=== PATIENT | female | born 1940 | race Caucasian/White ===

== ENCOUNTER → 2018-06-16 12:46 | Outpatient (CLI) | payer SELFPAY | PROVIDERS: Visit Provider Physician Assistant | DX: L03.90 Cellulitis, unspecified (principal) | CPT/HCPCS: 87070; 87075; 87077; 87147; 87186; 87205 ==

== ENCOUNTER 2018-06-21 12:51 | Emergency (ER) | payer SELFPAY ==
[2018-06-21 13:17] VITALS: BP 151/78; PULSE 72; RESP 16; TEMP 37.1; O2SAT 100
--- NOTE | 2018-06-21 13:26 | PC.NURSE ---
avulsion from plastic chair to E 05/31/18, placed on ABX and ointment. cultured and resulted as staph. Concerned it wasnt healing well. Appears red, has yellow skin slough to indicate healing. Pt reports only minor pain. Advised to not touch the healing area and to not scrape off the yellow slough--educated that its healing from the inside up and needs to stay there for protection. Pt American and there is minor language barrier but pt reports she understands.
--- NOTE | 2018-06-21 13:32 | ED_ITS ---
HPI - Extremity Problem <CRISTOBAL Bartlett - Last Filed: 06/21/18 22:07> General Chief complaint: Extremity Injury, Lower Stated complaint: STAPH INFECTION/LEFT LEG Time Seen by Provider: 06/21/18 13:08 Source: patient Mode of arrival: ambulatory Limitations: no limitations History of Present Illness HPI Narrative: 78-year-old female here for complaint of a wound to her left anterior lower extremity that she has had for the past couple of weeks. She reports that the wound started out as a cut that she received off of a chair and then got infected. She was seen by the walk-in clinic twice for this and was put on Keflex and also mupirocin ointment. She reports she is on day 5 of the oral antibiotics and has been dressing the wound daily with the mupirocin. She is concerned because the wound has not healed as of yet. She denies any purulent drainage from the wound. No fevers no chills. She is ambulatory into the emergency room. Related Data Previous Rx's Medication Instructions Recorded mupirocin 2 % topical ointment 1 applictn TOP DAILY #30 gram 06/16/18 Allergies Allergy/AdvReac Type Severity Reaction Status Date / Time nickel Allergy Severe Rash Verified 06/16/18 12:08 Review of Systems <CRISTOBAL Bartlett - Last Filed: 06/21/18 22:07> Constitutional Denies chills, Denies fever(s), Denies lethargy and Denies weakness Eyes Denies change in vision, Denies eye discharge, Denies irritation and Denies loss of vision ENT Ears, Nose, Mouth, and Throat: Denies change in voice, Denies neck pain and Denies sore throat Cardiovascular Denies chest pain, Denies irregular heart rhythm, Denies lightheadedness, Denies palpitations, Denies dyspnea, Denies dyspnea on exertion and Denies orthopnea Respiratory Denies cough, Denies dyspnea, Denies dyspnea on exertion and Denies wheezing Gastrointestinal Gastrointestinal: Denies abdominal pain, Denies change in bowel habits, Denies diarrhea, Denies nausea and Denies vomiting Genitourinary Denies hematuria, Denies flank pain, Denies urinary incontinence and Denies urinary urgency Musculoskeletal Denies neck pain Comments: Ulceration to left anterior lower extremity Integumentary/Breasts Denies pruritus, Denies erythema, Denies rash and Denies wounds Neurologic Denies confusion, Denies loss of vision and Denies weakness Psychiatric Denies anxiety, Denies confusion, Denies depression, Denies homicidal ideation and Denies suicidal ideation Endocrine Denies palpitations Hematologic/Lymphatic Denies easy bruising Allergic/Immunologic Denies wheezing Exam <CRISTOBAL Bartlett - Last Filed: 06/21/18 22:07> Initial Vital Signs Initial Vital Signs: Vital Signs Temperature 98.7 F 06/21/18 13:17 Pulse Rate 72 06/21/18 13:17 Respiratory Rate 16 06/21/18 13:17 Blood Pressure 151/78 H 06/21/18 13:17 Pulse Oximetry 100 06/21/18 13:17 Const General: cooperative and well developed Nutritional Appearance: well nourished Orientation: alert, awake, oriented x3 and not confused HENMT Mouth: oral mucosae normal and moist mucous membranes Eyes Conjunctivae: conjunctivae normal Sclera: sclerae normal Pupils: PERRL EOM: EOM intact bilaterally Resp Effort & Inspection: normal respiratory effort, able to speak in complete sentences, no respiratory distress and no use of accessory muscles Auscultation: clear to auscultation bilaterally, no rales, no rhonchi and no wheezes Cardio Rate: regular rate Rhythm: regular rhythm Heart Sounds: no click, no gallops, no murmurs and no rubs Pulses: normal peripheral pulses Skin General: No jaundice and No petechiae Neuro General: alert, oriented x3, gait normal and no focal motor deficits Speech: speech normal Extrem Other: 3 cm ulceration to the anterior tib-fib area with slight amount of erythema along the margins no significant erythema bruising. no fluctuance or induration. Distal sensation is intact. Distal range of motion is intact. Distal cap refill less than 2 sec. I <Francisco Ramírez MD - Last Filed: 06/23/18 07:26> Initial Vital Signs Initial Vital Signs: Vital Signs Temperature 98.7 F 06/21/18 13:17 Pulse Rate 72 18 13:17 Respiratory Rate 16 06/21/18 13:17 Blood Pressure 151/78 H 06/21/18 13:17 Pulse Oximetry 100 06/21/18 13:17 Course <CRISTOBAL Bartlett - Last Filed: 06/21/18 22:07> Vital Signs - 8 hr 06/21/18 13:17 Temperature 98.7 F Pulse Rate 72 Respiratory Rate 16 Blood Pressure 151/78 H Pulse Oximetry 100 <Francisco Ramírez MD - Last Filed: 06/23/18 07:26> Vital Signs - 8 hr 06/21/18 13:17 Temperature 98.7 F Pulse Rate 72 Respiratory Rate 16 Blood Pressure 151/78 H Pulse Oximetry 100 MDM - Extremity (Nontraumatic) <CRISTOBAL Bartlett - Last Filed: 06/21/18 22:07> [facility] Narrative Medical decision making narrative: It appears that wound is healing well by secondary intention. She was concerned that the granulation was purulent material she was informed that this is granulation at the the wound is healing from the inside out she has been scrubbing the wound to clean out the granulation which most likely has postponed the healing. She is instructed not to scrub out the granules a garcia. She is currently on day 5 of her oral antibiotics and is still using the piercing ointment. Will have her finish her antibiotic regimen and dress the wound daily with the mupirocin ointment and dressing until healed. Follow up with primary care provider. Return emergency room for any worsening symptoms. Discharge Plan Departure Patient Disposition: Home Clinical Impression: Lower extremity ulceration Discharge Date/Time: 06/21/18 13:55 Interventions: ED Discharge Assessment Last Done: 06/21/18 13:55 Instructions: Skin Wound Activity Restrictions/Additional Instructions: Wound appears to be healing well and is healing from the inside out. Finish oral antibiotics as prescribed. Continue to dress wound daily with the mupirocin ointment and dressing until healed. Follow up with primary care provider. Return emergency room for any worsening symptoms. Prescriptions: No Action mupirocin 2 % ointment 1 applictn TOP DAILY Qty: 30 RF: 0 Referrals: [facility] [Provider Group] <Francisco Ramírez MD - Last Filed: 06/23/18 07:26> Sign Out Provider Sign Out Attestation: The PA/SENIOR SCHEDULER functioned independently for the care of this pt, I was available, but not asked to participate in care. I am unable to determine appropriateness of management without personally examining the pt.
--- NOTE | 2018-06-21 14:27 | PC.NURSE ---
1315 wound assessed. healing well no s/sx of infection
--- NOTE | 2018-06-21 14:28 | PC.NURSE ---
wound dressed with gauze, allycene, and curlex. additional supplies provided
== END 2018-06-21 13:55 | disposition home or self-care (01) ==
PROVIDERS: Emergency Provider Nurse Practitioner Family
DX: L97.909 Non-pressure chronic ulcer of unspecified part of unspecified lower leg with unspecified severity (principal)
CPT/HCPCS: 99282